=== PATIENT | male | born 1955 | race Caucasian/White ===

== ENCOUNTER 2021-08-22 13:06 | Emergency (ER) | payer BC, OTHER ==
[~2021-08-22] VITALS: Ht 182.9 cm; Wt 79.4 kg
[2021-08-22 13:16] VITALS: BP_SYST 128
--- NOTE | 2021-08-22 13:44 | NUR ---
Pt to bed #2 coming from home ambulatory with unsteady gait due left knee pain 9/10 non-radiating and is constant. Pt is A&Ox4. Skin intact. Pt has hx of stroke 3 years ago, DM, HTN, and aphasia. NKA. No chest pain and no sob. denies n/v. VSS. Bed in lowest position. at bedside.
[2021-08-22] MEDS ORDERED: KETOROLAC TROMETHAMINE 60 MG/2 ML VIAL IM ONE (13:45)
[2021-08-22] MEDS ORDERED: HYDROcodone/ACETAMIN 10-325 MG TAB PO ONE (13:45)
--- NOTE | 2021-08-22 13:45 | NUR ---
ER at bedside examining patient.
--- NOTE | 2021-08-22 14:35 | NUR ---
US Doppler being done at bedside.
--- NOTE | 2021-08-22 15:01 | NUR ---
Pt moved to Bed #6. No c/o.
[2021-08-22 15:25] VITALS: BP_SYST 128
--- NOTE | 2021-08-22 15:26 | NUR ---
Patient given written and verbal discharge instructions and verbalizes understanding. ER MD discussed with patient the results and treatment provided. Patient in stable condition. ID arm band removed. Patient educated on pain management and to follow up with PMD. Pain Scale 0/10. Opportunity for questions provided and answered. Medication side effect fact sheet provided.
== END 2021-08-22 15:26 | disposition home or self-care (01) ==
LOC: SED 13:06
DX: M25.562 Pain in left knee (principal); Z79.899 Other long term (current) drug therapy
CPT/HCPCS: 93971; 96372; 99284; J1885

== ENCOUNTER 2022-01-01 12:01 | Inpatient (IN) | payer OTHER ==
[~2022-01-01] VITALS: Ht 180.3 cm; Wt 79.4 kg
[2022-01-01 12:01] VITALS: BP_SYST 204
--- NOTE | 2022-01-01 12:01 | NUR ---
Pt brought by from home, A&Ox4, pt presents to ER with severe headache 10/10 and High blood pressure, 200/95, per she gave oxicodone 1 hour ago, pt has Hx of stroke with R side weakness,also Hx of diabetes, current BS 182, pt follows commands, PERRLA, skin pink and warm, cap refill <3.
--- NOTE | 2022-01-01 12:01 | NUR ---
Patient to ER bed 2 to gown for evaluation. Side rails up. Report given to Vonda SHEARER
--- NOTE | 2022-01-01 12:02 | NUR ---
ER at bedside examining patient.
--- NOTE | 2022-01-01 12:04 | NUR ---
Patient transported to radiology via gurney, accompanied by RN dilcia rad staff.
--- NOTE | 2022-01-01 12:12 | NUR ---
Pt returned from CT on stable condition.
[2022-01-01] MEDS ORDERED: PROCHLORPERAZINE EDISYLATE 10 MG/2 ML VIAL IVP ONE (12:15)
[2022-01-01] MEDS ORDERED: KETOROLAC TROMETHAMINE 15 MG VIAL IVP ONE (12:15)
[2022-01-01] MEDS ORDERED: hydrALAZINE HCL 20 MG/ML VIAL IVP ONE (12:30)
[2022-01-01 12:36] LABS: BASOPHILS % (AUTO) 0.8 % (0.0-2.0); EOSINOPHILS # (AUTO) 0.2 K/uL (0.0-0.4); EOSINOPHILS % (AUTO) 2.4 % (0.0-4.0); HEMATOCRIT 43.4 % (36-54); HEMOGLOBIN 15.5 g/dL (14.0-18.0); LYMPHOCYTES # (AUTO) 2.2 K/uL (1.0-5.5); LYMPHOCYTES % (AUTO) 35.3 % (20.5-51.5); MEAN CORPUSCULAR HEMOGLOBIN 34 pg (27-31); MEAN CORPUSCULAR HGB CONC 36 % (32-36); MEAN CORPUSCULAR VOLUME 94 fL (79.0-98.0); MONOCYTES # (AUTO) 0.5 K/uL (0.0-1.0); MONOCYTES % (AUTO) 8.6 % (1.7-9.3); NEUTROPHILS # (AUTO) 3.3 K/uL (1.8-7.7); NEUTROPHILS % (AUTO) 52.9 % (40.0-70.0); PLATELET COUNT (AUTO) 190 K/uL (130-430); RED CELL DISTRIBUTION WIDTH 13.2 % (9.0-15.0); WHITE BLOOD COUNT (AUTO) 6.3 K/uL (4.8-10.8)
[2022-01-01] MEDS ORDERED: cloNIDine HCL 0.1 MG TABLET PO ONE (12:45)
[2022-01-01 12:52] LABS: ANION GAP 5 (5-15); CHLORIDE 100 mmol/L (98-107); GLUCOSE 191 mg/dL (70-99); UREA NITROGEN, BLOOD 12 mg/dL (8-21)
--- NOTE | 2022-01-01 12:55 | NUR ---
Pt A&Ox4, VSS, respirations even and unlabored, will cont to monitor.
[2022-01-01 13:00] LABS: ALANINE AMINOTRANSFERASE 31 U/L (12-78); ASPARTATE AMINOTRANSFERASE 22 U/L (10-37); TOTAL BILIRUBIN 0.2 mg/dL (0.0-1.0)
[2022-01-01 13:01] LABS: GFR AFRICAN AMERICAN 124 mL/min (>90)
[2022-01-01] MEDS ORDERED: ASPIRIN 81 MG TAB.CHEW PO ONE (13:15)
--- NOTE | 2022-01-01 13:15 | NUR ---
Pt states he took a baby aspirin this am,
[2022-01-01] MEDS ORDERED: LIP10 PO (13:16)
[2022-01-01] MEDS ORDERED: ELA10 PO (13:16)
[2022-01-01] MEDS ORDERED: RIZA5TAB17 PO (13:16)
[2022-01-01] MEDS ORDERED: ECO81 PO (13:16)
[2022-01-01] MEDS ORDERED: OXYC-133 PO (13:16)
[2022-01-01] MEDS ORDERED: MODA100T31 PO (13:16)
[2022-01-01] MEDS ORDERED: TERB250T35 PO (13:21)
[2022-01-01] MEDS ORDERED: CARB200T8 PO (13:21)
[2022-01-01] MEDS ORDERED: METO-442 PO (13:21)
[2022-01-01] MEDS ORDERED: TIZA-321 PO (13:21)
[2022-01-01] MEDS ORDERED: AMLO10TA88 PO (13:21)
[2022-01-01] MEDS ORDERED: DULA1.5P SQ (13:25)
--- NOTE | 2022-01-01 13:25 | NUR ---
Medication reconciliation completed with information provided by PT. Any prior medication reconciliation on file was reviewed and corrected.
--- NOTE | 2022-01-01 13:52 | NUR ---
Admit bed requested Patient will be admitted to care of Dr Eli.. Admitted to Tele unit. Diagnosis Chest pain, hypertension, Migraine Inpatient (Yes or No) No Observation (Yes or No) No Orientation concerns or request close to nursing station (Yes or No) No Covid Status pending On vent or bipap N/A Isolation requirements N/A Needs a sitter N/A From Home (Yes or if No enter name of facility) No Requires Dialysis (Yes or No) No Med Rec Completed (Yes of No) Yes
[2022-01-01] MEDS ORDERED: ACETAMINOPHEN 325 MG TABLET PO PRN (14:00)
[2022-01-01] MEDS ORDERED: ONDANSETRON HCL 4 MG/2 ML VIAL IVP PRN (14:00)
[2022-01-01] MEDS ORDERED: hydrALAZINE HCL 20 MG/ML VIAL IVP PRN (14:00)
--- NOTE | 2022-01-01 14:25 | NUR ---
Patient will be admitted to care of Dr Eli. Admitted to Tele unit. Will go to room 119B. Complete and up to date summary report printed. SBAR report to be given at bedside with opportunity for questions.
[2022-01-01 14:52] VITALS: BP_SYST 138
[2022-01-01] MEDS ORDERED: DULAGLUTIDE SQ SCH (15:30)
[2022-01-01] MEDS ORDERED: OXYCODONE/ACETAMINOPHEN *10*mg/325 mg TABLET PO PRN (15:30)
--- NOTE | 2022-01-01 15:31 | NUR ---
CONSULTATION PAGED/CALLED Reason for Consultation: []CHEST PAIN Person Who was Notified: []Bj Consulting Physician: [] DR. Alcantar y Staff Registered Nurse Specialty: []Cardiology Ordering Physician: []Dr. Eli
--- NOTE | 2022-01-01 15:35 | NUR ---
CONSULTATION PAGED/CALLED Reason for Consultation: []severe headache Person Who was Notified: []talked to Dr. dobson Consulting Physician: [] Bhavana Hernandez Preschool Teacher Aide Specialty: []Neurology Ordering Physician: []Dr. perez
[2022-01-01] MEDS ORDERED: LISINOPRIL 10 MG TABLET (PRINIVIL) PO ONE (15:45)
[2022-01-01] MEDS ORDERED: POLY17PO4 PO ×2 (16:34→16:37)
--- NOTE | 2022-01-01 16:45 | NUR ---
NOTES; RECEIVED PLASMA EYE DROPS FROM . DELIVERED IT TO PHARMACY, INFORMED PHARMACIST THAT EYE DROP HAD TO BE STORED IN [facility] PER .
--- NOTE | 2022-01-01 16:50 | NUR ---
FRANSISCO MARQUES; PER , PT NEEDS BLOOD SUGAR CHECKS AND XANAX 0.5MG Q3HR. Addendum: 01/01/22 at 1656 by Jessi Don RN XANAX 0.5MG PRN Q3HR*
--- NOTE | 2022-01-01 16:53 | NUR ---
NOTES; SAID SHE WILL BRING TRIPLICITY AND LAMISIL TOMORROW SINCE PT GOT THEM TODAY.
[2022-01-01] MEDS ORDERED: ALPRAZolam 0.25 MG TABLET PO PRN (19:15)
[2022-01-01] MEDS ORDERED: INSULIN REGULAR, HUMAN 100 UNITS/ML, 3 ML VIAL (humuLIN R) SUBCUT PRN (19:15)
--- NOTE | 2022-01-01 19:20 | NUR ---
CLOSING NOTES Patient resting calmly in bed. no obvious distress noted. Bed locked on lowest setting, call light in reach, IV saline lock patent and intact, no s/s of infiltration or infection. Safety precautions in place. Endorsed care to night RN.
--- NOTE | 2022-01-01 19:25 | NUR ---
CAME TO NURSES STATION REPORTED SHE WAS GOING TO TAKE PT'S BLOOD SUGAR AND GIVE HIM HIS MEDICATION, BECAUSE HIS BLOOD SUGAR HAD NOT BEEN TAKEN ALL DAY. EXPLAINED TO THIS NURSE WILL BE HER MASSIMO'S NURSE I AM JUST IN THE MIDDLE OF GETTING REPORT FOR HER .
--- NOTE | 2022-01-01 19:34 | NUR ---
Spoke with Dr. Eli received new orders. Addendum: 01/01/22 at 1935 by Johnson Mays RN Time 1909
[2022-01-01 20:00] VITALS: BP_SYST 129
--- NOTE | 2022-01-01 20:00 | NUR ---
OPENING NOTE PT IN BED AWAKE, REPORTS LEFT ABOUT 5 MINUTES AGO. PT AOX4 WITH LEFT SIDE WEAKNESS HE REPORTS FORM A CVA 4 YEARS AGO. PT HAS CANE AT BEDSIDE. PT ON R/A AND SAT ARE 98%. PT ORIENTED TO ROOM AND CALL LIGHT ABLE TO VERBALIZE CONCERNS. ALL SAFTY MEASURE ARE IN PLACE WILL CONTINUE TO MONITOR FOR SAFETY
[2022-01-01] MEDS ORDERED: ATORVASTATIN 10 MG TABLET PO SCH (21:00)
[2022-01-01] MEDS ORDERED: POLYETHYLENE GLYCOL 3350, 17 GM/ POWD.PACK PO SCH (21:00)
[2022-01-01] MEDS ORDERED: AMITRIPTYLINE HCL 10 MG TABLET (ELAVIL) PO SCH (21:00)
--- NOTE | 2022-01-01 21:30 | NUR ---
BLOOD SUGAR PT REFUSED TO HAVE BLOOD SUGAR TAKEN. PT REPORTS THAT TOOK BLOOD SUGAR AND IT WAS 194 AND SHE GAVE HIM HIS TRULICITY
[2022-01-01] MEDS: METOPROLOL TARTRATE 50 MG TABLET PO SCH (21:32)
[2022-01-01] MEDS: tiZANidine HCL 4 MG TABLET PO SCH (21:33)
[2022-01-01] MEDS: POLYETHYLENE GLYCOL 3350, 17 GM/ POWD.PACK PO SCH (21:33)
[2022-01-01] MEDS: [UNRECOGNIZED DRUG - REMARK] OP SCH (21:42)
[2022-01-01 22:00] VITALS: BP_SYST 116
--- NOTE | 2022-01-01 22:00 | NUR ---
BLOOD PRESSURE BLOOD PRESSURE TAKEN BEFORE MEDICATIONS WERE GIVEN AND BP WAS 116/83.
[2022-01-01 23:00] VITALS: BP_SYST 114
--- NOTE | 2022-01-01 23:00 | NUR ---
REPEAT BP BP WAS REPEATED AFTER MEDICATION GIVEN. BP WAS 116/81
[2022-01-02 01:07] VITALS: BP_SYST 99
--- NOTE | 2022-01-02 02:00 | NUR ---
PT AWAKE PT GOING TO THE B/R. THIS NURSED STAYED TO OBSERVE THAT PT WAS STEADY ON HIS FEET AND PT USED HIS CANE. TP WENT TO B/R WITH NO INCIDENT
[2022-01-02 04:00] VITALS: BP_SYST 110
[2022-01-02 07:05] LABS: CREATININE 0.83 mg/dL (0.55-1.30)
[2022-01-02 07:57] LABS: BASOPHILS % (AUTO) 0.5 % (0.0-2.0); EOSINOPHILS # (AUTO) 0.2 K/uL (0.0-0.4); EOSINOPHILS % (AUTO) 3.1 % (0.0-4.0); HEMATOCRIT 39.3 % (36-54); LYMPHOCYTES # (AUTO) 3.2 K/uL (1.0-5.5); LYMPHOCYTES % (AUTO) 42.7 % (20.5-51.5); MEAN CORPUSCULAR HEMOGLOBIN 34 pg (27-31); MEAN CORPUSCULAR HGB CONC 36 % (32-36); MEAN CORPUSCULAR VOLUME 94 fL (79.0-98.0); MONOCYTES # (AUTO) 0.9 K/uL (0.0-1.0); MONOCYTES % (AUTO) 11.7 % (1.7-9.3); NEUTROPHILS # (AUTO) 3.1 K/uL (1.8-7.7); PLATELET COUNT (AUTO) 186 K/uL (130-430); RED BLOOD CELL COUNT(AUTO) 4.18 MIL/uL (4.2-6.2); RED CELL DISTRIBUTION WIDTH 13.6 % (9.0-15.0); WHITE BLOOD COUNT (AUTO) 7.5 K/uL (4.8-10.8)
--- NOTE | 2022-01-02 07:57 | NUR ---
Shift Summary: patient is AAOX4. vitals are stable upon start of shift. patient informed of plan of care for the day. patient states he understands and has no concerns upon start of shift. will continue to monitor patient. call light within reach, bed set to low, locked, and alarm on. Addendum: 01/02/22 at 0819 by Elizabeth Patel RN RN patient attempted to get up on his own. informed patient that he is high risk for falls due to symptoms and known left sided weakness. patient states he understands and will use call light when he needs to ambulate and will not ambulate without staff present. Addendum: 01/02/22 at 0929 by Elizabeth Patel RN RN spoke to patients . patients expressed frustration regarding plan of care prior to my shift. apologized to and told her that i will reach out to physicians with her concerns. informed of plan of care for the day. asked to bring in home medications. stated she couldnt bring in Lamisil and that he "could miss one day". asked to speak to patient regarding not attempting to ambulate without staff due to high risk for fall. reassured and patient that i will try my best to make sure patient is comfortable during admission stay. patient current having bedside echo done with plans for MRI as well. patients stated she understood and appreciated the plan of care for the day. informed to call if any other questions or concerns are brought up. will continue to monitor patient.
[2022-01-02 08:00] VITALS: BP_SYST 123
[2022-01-02] MEDS: POLYETHYLENE GLYCOL 3350, 17 GM/ POWD.PACK PO SCH (08:58)
[2022-01-02] MEDS: METOPROLOL TARTRATE 50 MG TABLET PO SCH (08:59)
[2022-01-02] MEDS ORDERED: COMMUNICATION ORDER XX SCH (09:00)
[2022-01-02] MEDS ORDERED: amLODIPine BESYLATE 10 MG TABLET PO SCH (09:00)
[2022-01-02] MEDS ORDERED: LISINOPRIL 10 MG TABLET (PRINIVIL) PO SCH (09:00)
[2022-01-02] MEDS ORDERED: TERbinafine HCL 250 MG TABLET(LamISIL) PO SCH ×2 (09:00)
[2022-01-02] MEDS ORDERED: ASPIRIN 81 MG TABLET(ECOTRIN) PO SCH (09:00)
[2022-01-02] MEDS ORDERED: MODAFINIL 100 MG TABLET (PROVIGIL) PO SCH (09:00)
[2022-01-02] MEDS: tiZANidine HCL 4 MG TABLET PO SCH ×2 (10:03→16:32)
[2022-01-02] MEDS: [UNRECOGNIZED DRUG - REMARK] OP SCH (10:03)
[2022-01-02 11:49] VITALS: BP_SYST 115
[2022-01-02 16:32] VITALS: BP_SYST 127
[2022-01-02 18:06] VITALS: BP_SYST 127
--- NOTE | 2022-01-02 19:12 | NUR ---
Discharge summary: patient is AAOX1. vitals are stable. PIV and tele monitor discontinued. patient and given discharge instructions regarding activity, diet, follow up appointment and medication. patient and state they have no questions or concerns upon discharge. patient and state they have all of patients personal belongings prior to discharge. patient leaving unit on wheelchair with assistance from staff.
--- NOTE | 2022-01-03 11:20 | NUR ---
TELEPHONE REPAIRER ACSW Belkis returned a voicemail message to Natalia Godoy . She requested information related to discharge plans, ACSW provided her with contact information for HCP/[employer] Tasha. Natalia also wanted to express her gratitude and admiration regarding the care provided by JESSIE Willoughby. ACSW will continue to be available as needed
[2022-01-08] MEDS ORDERED: DULAGLUTIDE SUBCUT SCH (09:00)
== END 2022-01-02 18:30 | disposition home or self-care (01) | DRG 305 ==
LOC: SED 12:01 → STU 13:47
PROVIDERS: ADMIT Internal Medicine; ATTEND Internal Medicine
DX: I16.0 Hypertensive urgency (principal); I69.354 Hemiplegia and hemiparesis following cerebral infarction affecting left non-dominant side; G43.909 Migraine, unspecified, not intractable, without status migrainosus; R07.9 Chest pain, unspecified; I10 Essential (primary) hypertension; E11.9 Type 2 diabetes mellitus without complications; E78.00 Pure hypercholesterolemia, unspecified; Z20.822 Contact with and (suspected) exposure to COVID-19; Z79.891 Long term (current) use of opiate analgesic; Z79.899 Other long term (current) drug therapy
CPT/HCPCS: 36415; 70450-TC; 70551; 76376; 80048; 80053; 82962; 83880; 84484; 85025; 93005; 93306; 96374; 96375; 99285; G0378; J0780; J1815; J1885

== ENCOUNTER 2023-04-29 11:54 | Inpatient (IN) | payer OTHER ==
[~2023-04-29] VITALS: Ht 182.9 cm; Wt 83.9 kg
[~2023-04-29 11:54] MED LIST: AMLO10TA88 PO; CARB200T8 PO; DULA1.5P SQ; ECO81 PO; ELA10 PO; LIP10 PO; METO-442 PO; MODA100T31 PO; OXYC-133 PO; POLY17PO4 PO; RIZA5TAB17 PO; TERB250T35 PO; TIZA-321 PO
[2023-04-29 11:56] VITALS: RESP 18
[2023-04-29] MEDS ORDERED: iohexoL 350 mgI/mL, 100 ML INFUS..BTL IV ONE (12:05)
[2023-04-29 12:30] LABS: BASOPHILS # (AUTO) 0.1 K/uL (0.0-0.2); BASOPHILS % (AUTO) 0.7 % (0.0-2.0); EOSINOPHILS # (AUTO) 0.3 K/uL (0.0-0.4); EOSINOPHILS % (AUTO) 3.7 % (0.0-4.0); HEMOGLOBIN 14.4 g/dL (14.0-18.0); LYMPHOCYTES # (AUTO) 2.1 K/uL (1.0-5.5); LYMPHOCYTES % (AUTO) 27.6 % (20.5-51.5); MEAN CORPUSCULAR HEMOGLOBIN 32 pg (27-31); MEAN CORPUSCULAR HGB CONC 34 % (32-36); MEAN CORPUSCULAR VOLUME 94 fL (79.0-98.0); MONOCYTES # (AUTO) 0.7 K/uL (0.0-1.0); MONOCYTES % (AUTO) 9.9 % (1.7-9.3); NEUTROPHILS # (AUTO) 4.4 K/uL (1.8-7.7); NEUTROPHILS % (AUTO) 58.1 % (40.0-70.0); PLATELET COUNT (AUTO) 246 K/uL (130-430); RED CELL DISTRIBUTION WIDTH 13.3 % (9.0-15.0); WHITE BLOOD COUNT (AUTO) 7.5 K/uL (4.8-10.8)
[2023-04-29 12:48] LABS: ANION GAP 4 (5-15); CALCIUM 9.6 mg/dL (8.4-11.0); CARBON DIOXIDE 33 mmol/L (23-29); CHLORIDE 102 mmol/L (98-107); GLUCOSE 148 mg/dL (74-106); SODIUM SERUM 139 mmol/L (136-145); UREA NITROGEN, BLOOD 25 mg/dL (8-21)
[2023-04-29] MEDS ORDERED: METO50TA16 PO (12:48)
[2023-04-29] MEDS ORDERED: FURO40TA5 PO (12:48)
[2023-04-29] MEDS ORDERED: [UNRECOGNIZED DRUG - CODE] PO (12:48)
[2023-04-29] MEDS ORDERED: METF-379 PO (12:48)
[2023-04-29] MEDS ORDERED: SUMA100T16 PO (12:48)
[2023-04-29] MEDS ORDERED: DULO60CA65 PO (12:48)
[2023-04-29] MEDS ORDERED: CELE100C99 PO (12:48)
[2023-04-29] MEDS ORDERED: AMIT50TA3 PO (12:48)
[2023-04-29] MEDS ORDERED: DIAZ5TAB4 PO (12:48)
[2023-04-29] MEDS ORDERED: TIZA-198 PO (12:48)
[2023-04-29] MEDS ORDERED: KETO10TA2 PO (12:48)
[2023-04-29] MEDS ORDERED: ASPI-1393 PO (12:48)
[2023-04-29] MEDS ORDERED: OXYC10TA48 PO (12:48)
[2023-04-29] MEDS ORDERED: MECL-292 PO (12:48)
[2023-04-29] MEDS ORDERED: ATOR10TA68 PO (12:48)
[2023-04-29] MEDS ORDERED: PREG25CA19 PO (12:48)
[2023-04-29] MEDS ORDERED: DULO30CA52 PO (12:48)
[2023-04-29] MEDS ORDERED: METH-800 PO (12:48)
[2023-04-29 12:54] LABS: HEMOGLOBIN A1C 6.63 % (<5.7)
[2023-04-29 12:55] LABS: CHOLESTEROL 157 mg/dL (<200); GFR AFRICAN AMERICAN 107 mL/min (>90); GFR NON AFRICAN-AMERICAN 89 mL/min (>90); HDL CHOLESTEROL 56 mg/dL (>45); TRIGLYCERIDES 127 mg/dL (30-150)
[2023-04-29] MEDS ORDERED: METH150T PO (13:00)
[2023-04-29] MEDS ORDERED: DIOS630T PO (13:00)
[2023-04-29] MEDS ORDERED: TENA50TA PO (13:00)
[2023-04-29] MEDS: LORazepam 2 MG/ML VIAL IVP ONE (23:51)
[2023-04-30] MEDS ORDERED: LORazepam 2 MG/ML VIAL IVP PRN
[2023-04-30] MEDS ORDERED: traZODone HCL 50 MG TABLET (DESYREL) PO PRN
[2023-04-30] MEDS: LORazepam 2 MG/ML VIAL IM ONE (00:18)
[2023-04-30] MEDS: DIPHENHYDRAMINE INJ 50 MG/ML VIAL IM ONE (00:18)
[2023-04-30] MEDS: HALOPERIDOL LACTATE 5 MG/ML VIAL IVP ONE (03:05)
[2023-04-30] MEDS: DIPHENHYDRAMINE INJ 50 MG/ML VIAL IVP ONE (03:06)
[2023-04-30 03:57] LABS: CANNABINOID, URINE POSITIVE (NEG <=50); OPIATE, URINE POSITIVE (NEG <=100)
[2023-04-30 03:58] LABS: BARBITURATE, URINE NEGATIVE (NEG <=200); BENZODIAZEPINE, URINE POSITIVE (NEG <=150); COCAINE, URINE NEGATIVE (NEG <=150); METHAMPHETAMINES SCREEN,URINE NEGATIVE (NEG <=500); PHENCYCLIDINE SCREEN,URINE NEGATIVE (NEG <=25); URINE AMPHETAMINE NEGATIVE (NEG <=500); URINE METHADONE NEGATIVE (NEG <=200); URINE OXYCODONE SCREEN NEGATIVE (NEG <=100)
[2023-04-30 03:59] LABS: UR TRICYCLIC ANTIDEPRESSANTS POSITIVE (NEG <=300)
[2023-04-30 08:09] VITALS: BP_SYST 121; PULSE 86; RESP 16; RESP 18; TEMP 98.4; O2SAT 96
[2023-04-30 11:13] VITALS: BP_SYST 118; PULSE 109; RESP 18; TEMP 97.8; O2SAT 98
[2023-04-30 15:54] VITALS: BP_SYST 121; PULSE 100; RESP 18; TEMP 98.4; O2SAT 97
[2023-04-30 20:00] VITALS: O2SAT 93
[2023-04-30 20:17] VITALS: BP_SYST 130; PULSE 90; RESP 18; TEMP 98.1; O2SAT 93
[2023-05-01 00:43] VITALS: BP_SYST 139; PULSE 84; RESP 16; TEMP 97.8; O2SAT 98
[2023-05-01 07:43] VITALS: BP_SYST 153; PULSE 94; RESP 18; TEMP 98.2; O2SAT 99
[2023-05-01 08:00] VITALS: O2SAT 99
[2023-05-01] MEDS ORDERED: ASPIRIN 81 MG TABLET(ECOTRIN) PO ONE (10:00)
[2023-05-01] MEDS ORDERED: ATORVASTATIN 20 MG TABLET PO ONE (11:00)
[2023-05-01] MEDS ORDERED: LOSARTAN POTASSIUM 25 MG TABLET PO ONE (11:00)
[2023-05-01 11:10] VITALS: BP_SYST 153; PULSE 94; RESP 18; TEMP 98; O2SAT 99
[2023-05-01 12:00] VITALS: BP_SYST 150; PULSE 68; RESP 18; TEMP 97.9; O2SAT 98
[2023-05-02] MEDS ORDERED: LOSARTAN POTASSIUM 25 MG TABLET PO SCH (09:00)
[2023-05-02] MEDS ORDERED: ATORVASTATIN 20 MG TABLET PO SCH (09:00)
[2023-05-02] MEDS ORDERED: ASPIRIN 81 MG TABLET(ECOTRIN) PO SCH (09:00)
== END 2023-05-01 11:44 | disposition home health service (06) | DRG 64 ==
LOC: SED 11:54 → STU 14:39 → SMU 04-30 10:43
PROVIDERS: ADMIT Specialist; ATTEND Specialist
PROC: 4A10X4Z Monitoring of Central Nervous Electrical Activity, External Approach (ICD-10-PCS; principal; 2023-04-30)
DX: I63.81 Other cerebral infarction due to occlusion or stenosis of small artery (principal); G92.8 Other toxic encephalopathy; G81.94 Hemiplegia, unspecified affecting left nondominant side; E11.9 Type 2 diabetes mellitus without complications; E78.5 Hyperlipidemia, unspecified; I10 Essential (primary) hypertension; Z86.73 Personal history of transient ischemic attack (TIA), and cerebral infarction without residual deficits; T50.915A Adverse effect of multiple unspecified drugs, medicaments and biological substances, initial encounter; R29.810 Facial weakness
CPT/HCPCS: 36415; 70450; 70496; 70498; 71045; 80048; 80061; 80307; 82948; 83037; 84484; 85025; 85610; 85730; 86886; 86900; 86901; 87081; 93005; 93306; 95816; 96374; 97110-GP; 97112-GP; 97116-GP; 97530-GP; 99291; G0378; J1200; J1630; J2060; Q9967

== ENCOUNTER 2023-05-20 21:26 | Emergency (ER) | payer OTHER ==
[~2023-05-20] VITALS: Ht 182.9 cm; Wt 86.2 kg
[~2023-05-20 21:26] MED LIST changes: +AMIT50TA3 PO; +ASPI-1393 PO; +ATOR10TA68 PO; +CELE100C99 PO; +DIAZ5TAB4 PO; +DIOS630T PO; +DULO30CA52 PO; +DULO60CA65 PO; +FURO40TA5 PO; +KETO10TA2 PO; +MECL-292 PO; +METF-379 PO; +METH-800 PO; +METH150T PO; +METO50TA16 PO; +OXYC10TA48 PO; +PREG25CA19 PO; +SUMA100T16 PO; +TENA50TA PO; +TIZA-198 PO; +[UNRECOGNIZED DRUG - CODE] PO
[2023-05-20 21:45] VITALS: BP_SYST 142; PULSE 73; RESP 18; TEMP 98; O2SAT 98
[2023-05-20 22:29] LABS: BASOPHILS # (AUTO) 0.1 K/uL (0.0-0.2); BASOPHILS % (AUTO) 0.7 % (0.0-2.0); EOSINOPHILS # (AUTO) 0.3 K/uL (0.0-0.4); EOSINOPHILS % (AUTO) 2.7 % (0.0-4.0); HEMATOCRIT 41.2 % (36-54); HEMOGLOBIN 14.2 g/dL (14.0-18.0); LYMPHOCYTES % (AUTO) 20.6 % (20.5-51.5); MEAN CORPUSCULAR HEMOGLOBIN 32 pg (27-31); MEAN CORPUSCULAR HGB CONC 35 % (32-36); MEAN CORPUSCULAR VOLUME 92 fL (79.0-98.0); MONOCYTES % (AUTO) 10.3 % (1.7-9.3); NEUTROPHILS # (AUTO) 6.4 K/uL (1.8-7.7); NEUTROPHILS % (AUTO) 65.7 % (40.0-70.0); PLATELET COUNT (AUTO) 241 K/uL (130-430); RED BLOOD CELL COUNT(AUTO) 4.46 MIL/uL (4.2-6.2); RED CELL DISTRIBUTION WIDTH 13.9 % (9.0-15.0); WHITE BLOOD COUNT (AUTO) 9.8 K/uL (4.8-10.8)
[2023-05-20 22:43] LABS: ANION GAP 6 (5-15); CALCIUM 9.3 mg/dL (8.4-11.0); CARBON DIOXIDE 33 mmol/L (23-29); CHLORIDE 101 mmol/L (98-107); GLUCOSE 166 mg/dL (74-106); POTASSIUM 4.3 mmol/L (3.5-5.1); SODIUM SERUM 140 mmol/L (136-145); UREA NITROGEN, BLOOD 34 mg/dL (8-21)
[2023-05-20 22:46] LABS: GFR AFRICAN AMERICAN 77 mL/min (>90); GFR NON AFRICAN-AMERICAN 64 mL/min (>90)
[2023-05-20 23:45] VITALS: BP_SYST 133; PULSE 81; RESP 18; TEMP 98; O2SAT 94
== END 2023-05-20 23:55 | disposition home or self-care (01) ==
LOC: SED 21:26
DX: R42 Dizziness and giddiness (principal); R51.9 Headache, unspecified; M25.562 Pain in left knee; E11.9 Type 2 diabetes mellitus without complications; I10 Essential (primary) hypertension; Z86.73 Personal history of transient ischemic attack (TIA), and cerebral infarction without residual deficits; Z79.899 Other long term (current) drug therapy
CPT/HCPCS: 36415; 70450-TC; 71045; 73564; 80048; 83880; 84484; 85025; 93005; 99285

== ENCOUNTER 2023-11-01 12:04 | Emergency (ER) | payer OTHER ==
[~2023-11-01] VITALS: Ht 175.3 cm; Wt 77.1 kg
[~2023-11-01 12:04] MED LIST changes: -AMIT50TA3 PO; -ASPI-1393 PO; +ATOR-449 PO; -ATOR10TA68 PO; -CARB200T8 PO; -CELE100C99 PO; -DIAZ5TAB4 PO; -DULO60CA65 PO; -ECO81 PO; -ELA10 PO; -KETO10TA2 PO; -LIP10 PO; -METH-800 PO; -METH150T PO; -METO-442 PO; -MODA100T31 PO; -OXYC-133 PO; -OXYC10TA48 PO; -POLY17PO4 PO; +POTA8TAB66 PO; -PREG25CA19 PO; -RIZA5TAB17 PO; -TERB250T35 PO; -TIZA-198 PO; -TIZA-321 PO; -[UNRECOGNIZED DRUG - CODE] PO
[2023-11-01 12:16] VITALS: BP_SYST 155; PULSE 73; RESP 17; TEMP 98.3; O2SAT 99
[2023-11-01 12:52] LABS: BASOPHILS % (AUTO) 0.4 % (0.0-2.0); EOSINOPHILS # (AUTO) 0.3 K/uL (0.0-0.4); EOSINOPHILS % (AUTO) 3.5 % (0.0-4.0); HEMATOCRIT 41.8 % (36-54); HEMOGLOBIN 14.3 g/dL (14.0-18.0); LYMPHOCYTES # (AUTO) 2.7 K/uL (1.0-5.5); LYMPHOCYTES % (AUTO) 30.6 % (20.5-51.5); MEAN CORPUSCULAR HEMOGLOBIN 31 pg (27-31); MEAN CORPUSCULAR HGB CONC 34 % (32-36); MEAN CORPUSCULAR VOLUME 89 fL (79.0-98.0); MONOCYTES # (AUTO) 0.9 K/uL (0.0-1.0); MONOCYTES % (AUTO) 10.5 % (1.7-9.3); NEUTROPHILS # (AUTO) 4.8 K/uL (1.8-7.7); PLATELET COUNT (AUTO) 220 K/uL (130-430); RED BLOOD CELL COUNT(AUTO) 4.68 MIL/uL (4.2-6.2); RED CELL DISTRIBUTION WIDTH 13.3 % (9.0-15.0); WHITE BLOOD COUNT (AUTO) 8.7 K/uL (4.8-10.8)
[2023-11-01 13:09] LABS: PROTHROMBIN TIME 10.4 SECS (9.5-12.5)
[2023-11-01 13:12] LABS: INFLUENZA TYPE A Negative (NEGATIVE); INFLUENZA TYPE B NEGATIVE (NEGATIVE)
[2023-11-01 13:12] LABS: ALANINE AMINOTRANSFERASE 17 U/L (12-78); ALBUMIN 3.5 g/dL (3.4-4.8); ANION GAP 10 (5-15); ASPARTATE AMINOTRANSFERASE 25 U/L (10-37); BILIRUBIN,DIRECT 0.2 mg/dL (0.0-0.3); CALCIUM 9.4 mg/dL (8.4-11.0); CARBON DIOXIDE 30 mmol/L (23-29); CHLORIDE 106 mmol/L (98-107); CREATININE 0.77 mg/dL (0.55-1.30); GLUCOSE 152 mg/dL (74-106); POTASSIUM 3.5 mmol/L (3.5-5.1); SODIUM SERUM 146 mmol/L (136-145); TOTAL BILIRUBIN 0.6 mg/dL (0.0-1.0); UREA NITROGEN, BLOOD 22 mg/dL (8-21)
[2023-11-01 13:13] LABS: GFR AFRICAN AMERICAN 128 mL/min (>90); GFR NON AFRICAN-AMERICAN 106 mL/min (>90)
[2023-11-01] MEDS ORDERED: METH-800 PO (13:17)
[2023-11-01] MEDS ORDERED: ATOR40TA68 PO (13:17)
[2023-11-01] MEDS ORDERED: MORP15TA PO (13:17)
[2023-11-01] MEDS ORDERED: ASPI-1393 PO (13:17)
[2023-11-01] MEDS ORDERED: DIAZ5TAB4 PO (13:17)
[2023-11-01] MEDS: NS 1000 ML IV.SOLN IV ONE (13:21)
[2023-11-01 13:24] LABS: BILIRUBIN,URINE NEGATIVE (NEGATIVE); BLOOD, URINE NEGATIVE (NEGATIVE); CLARITY/URINE CLEAR (CLEAR); COLOR,URINE YELLOW (YELLOW); GLUCOSE,URINE NEGATIVE (NEGATIVE); KETONES,URINE TRACE (NEGATIVE); LEUKOCYTE ESTERASE ,URINE NEGATIVE (NEGATIVE); NITRITE, URINE NEGATIVE (NEGATIVE); PH,URINE 7.5 (5.0-8.0); PROTEIN URINE NEGATIVE (NEGATIVE)
[2023-11-01] MEDS: MORPHINE 4 MG INJ. 4 MG/ML VIAL IVP ONE (13:32)
[2023-11-01] MEDS: chlorproMAZINE HCL 50 MG/ 2 ML AMP IM ONE (17:50)
[2023-11-01 18:14] VITALS: BP_SYST 160; PULSE 75; RESP 16; TEMP 98.3; O2SAT 97
== END 2023-11-01 18:16 | disposition home or self-care (01) ==
LOC: SED 12:04
DX: E86.0 Dehydration (principal); R06.6 Hiccough; R40.4 Transient alteration of awareness; Z20.822 Contact with and (suspected) exposure to COVID-19; I10 Essential (primary) hypertension; Z79.899 Other long term (current) drug therapy; Z79.2 Long term (current) use of antibiotics; Z79.82 Long term (current) use of aspirin; Z79.84 Long term (current) use of oral hypoglycemic drugs
CPT/HCPCS: 99285; 96374; 70450; 96361; 71045; 87426; 80076; 80048; 81001; 85025; 85610; 85730; 87040; 87086; 84484; 36415; 93005; 96372; 83605; 81003; 87804 ×2; J3230; J2270; J7030